=== PATIENT | female | born 1990 ===

== ENCOUNTER 2020-04-07 08:24 | Emergency (ER) | payer SELFPAY ==
[2020-04-07] MEDS ORDERED: Acetaminophen 325 MG TAB ONE ×2 (08:51→08:53)
[2020-04-07] MEDS ORDERED: Ondansetron ODT 4 MG TAB ONE ×2 (08:51→08:53)
[2020-04-07 15:46] LABS: SARS-CoV-2 MS2 Positive; SARS-CoV-2 N Gene Negative; SARS-CoV-2 S Gene Negative; SARS-CoV-2 by NAA Not Detected (NotDetected); SARS-CoV-2 orf1ab Negative
== END 2020-04-07 09:15 | disposition home or self-care (01) ==
LOC: ERS 08:24
DX: R19.7 Diarrhea, unspecified (principal); R11.2 Nausea with vomiting, unspecified; Z20.828 Contact with and (suspected) exposure to other viral communicable diseases; F41.9 Anxiety disorder, unspecified; I10 Essential (primary) hypertension; F31.9 Bipolar disorder, unspecified; Z79.899 Other long term (current) drug therapy
CPT/HCPCS: 87635; 99284; Q0162; U0003